=== PATIENT | male | born 1975 | race Asian ===

== ENCOUNTER 2022-05-18 11:13 | Observation (INO) | payer OTHER ==
[~2022-05-18] VITALS: Ht 172.7 cm; Wt 86.4 kg
[2022-05-18 11:20] VITALS: BP 154/90; BP 254/90; TEMP 98.7
[2022-05-18 12:03] LABS: PLATELET COUNT 292 K/uL (142-355)
[2022-05-18 12:05] LABS: POTASSIUM 3.9 mmol/L (3.6-5.2)
[2022-05-18 12:15] LABS: PARTIAL THROMBOPLASTIN TIME 27.6 SECONDS (24.5-33.6)
[2022-05-18 13:12] VITALS: BP 136/77
[2022-05-18 15:55] VITALS: BP 134/88; TEMP 98.5
[2022-05-18] MEDS ORDERED: OLANZAPINE2.5 MG PO (16:15)
[2022-05-18 16:34] VITALS: BP 134/88; TEMP 98.5; Ht 172.7 cm; Wt 86.4 kg
[2022-05-18] MEDS ORDERED: [UNRECOGNIZED DRUG - MIXTURE] OPTH (16:41)
[2022-05-18] MEDS ORDERED: Acyclovir PO (16:41)
== END 2022-05-18 17:15 ==
LOC: ED 11:13 → MED/SURG 13:30
PROVIDERS: Emergency Medicine; ADMIT Internal Medicine; ATTEND Internal Medicine
DX: G51.0 Bell's palsy (principal); R29.810 Facial weakness
CPT/HCPCS: 80053; 80307; 81002; 84484; 85027; 85379; 85610; 85730; 87635; 93005; 99220; 99283; A9576; G0378; U0003